=== PATIENT | male | born 1990 | race Caucasian/White ===

== ENCOUNTER 2021-12-10 21:31 | Outpatient (REF) | payer BC, SELFPAY ==
[2021-12-10 22:27] LABS: Anion Gap 11.6 mmol/L (3-11); BUN 12 mg/dL (7-18); CO2 26.4 mmol/L (21.0-32.0); CREATININE 0.9 mg/dL (0.70-1.30); Calcium 9.1 mg/dL (8.5-10.1); Calculated LDL 88 mg/dL (<100); Chloride 105 mmol/L (98-107); Cholesterol 161 mg/dL (<200); Glucose 88 mg/dL (74-106); HDL Cholesterol 55 mg/dL (40-60); Potassium 3.7 mmol/L (3.5-5.1); Sodium 143 mmol/L (136-145); Triglyceride 91 mg/dL (<150)
[2021-12-12 09:37] LABS: Hepatitis C Ab w Rflx HCV PCR Negative (Negative)
[2021-12-12 09:57] LABS: HIV-1/2 Ag & Ab Screen Negative (Negative)
== END 2021-12-10 21:32 | disposition home or self-care (01) ==
LOC: NCHCN 21:31
PROVIDERS: Visit Provider Nurse Practitioner Family
DX: I10 Essential (primary) hypertension (principal); Z13.220 Encounter for screening for lipoid disorders; Z11.59 Encounter for screening for other viral diseases; Z11.4 Encounter for screening for human immunodeficiency virus [HIV]
CPT/HCPCS: 80048; 80061; 86803; 87389